=== PATIENT | male | born 1965 | race Two or more races ===

== ENCOUNTER 2022-07-29 12:15 | Emergency (ER) | payer OTHER, MEDICAID ==
[2022-07-29 12:31] VITALS: BP 141/80; PULSE 70
[2022-07-29] MEDS: Lidocaine 1% 10 ML MDV INJECT ONE (12:42)
== END 2022-07-29 12:54 | disposition home or self-care (01) ==
LOC: VM.ED 12:15
DX: S61.211A Laceration without foreign body of left index finger without damage to nail, initial encounter (principal); W26.8XXA Contact with other sharp object(s), not elsewhere classified, initial encounter; Y99.0 Civilian activity done for income or pay
CPT/HCPCS: 12001; 99282